=== PATIENT | male | born 2000 | race Caucasian/White ===

== ENCOUNTER 2021-05-09 16:40 | Emergency (ER) ==
[~2021-05-09] VITALS: Ht 180.3 cm; Wt 81.8 kg
== END 2021-05-09 21:10 | disposition left against medical advice (07) ==
LOC: M ED 16:40
DX: Z53.21 Procedure and treatment not carried out due to patient leaving prior to being seen by health care provider (principal)

== ENCOUNTER 2021-12-26 20:03 | Emergency (ER) ==
[~2021-12-26] VITALS: Ht 175.3 cm; Wt 89.4 kg
== END 2021-12-26 21:02 | disposition left against medical advice (07) ==
LOC: M ED 20:03
DX: Z53.21 Procedure and treatment not carried out due to patient leaving prior to being seen by health care provider (principal)

== ENCOUNTER → 2023-08-30 | Outpatient (CLI) | payer MEDICAID, OTHER | LOC: M RAD 08:39 | PROVIDERS: ATTEND Physician Assistant | DX: J34.2 Deviated nasal septum (principal) ==

== ENCOUNTER 2023-09-10 09:14 | Emergency (ER) | payer OTHER ==
[~2023-09-10] VITALS: Ht 182.9 cm; Wt 86.8 kg
[2023-09-10] MEDS ORDERED: HYDR50TA70 (09:54)
[2023-09-10 13:21] LABS: HEPATITIS B SURFACE ANTIBODY POSITIVE (POSITIVE)
[2023-09-10 13:33] LABS: HEPATITIS B SURFACE ANTIGEN NEGATIVE (NEGATIVE)
[2023-09-10 13:45] LABS: HIV 1&2 SCREEN NEGATIVE (NEGATIVE)
[2023-09-10 13:48] LABS: Trichomonas vaginalis (AMP) NOT DETECTED (NEGATIVE)
[2023-09-10 13:54] LABS: HEPATITIS C VIRUS ABY INDEX < 0.02 INDEX (<0.8)
[2023-09-10 14:11] LABS: GC DNA AMPLIFICATION NEGATIVE (NEGATIVE)
[2023-09-10] MEDS ORDERED: METR-265 PO (14:31)
[2023-09-10 14:44] VITALS: BP 120/76; TEMP 97.6; O2SAT 98
[2023-09-10] MEDS: metroNIDAZOLE (FLAGYL) 500MG TABLET PO ONE (14:48)
[2023-09-10] MEDS ORDERED: DOXY-440 PO (14:54)
== END 2023-09-10 14:53 | disposition home or self-care (01) ==
LOC: M ED 09:14
DX: A74.9 Chlamydial infection, unspecified (principal); F17.200 Nicotine dependence, unspecified, uncomplicated; Z86.79 Personal history of other diseases of the circulatory system; J45.909 Unspecified asthma, uncomplicated; F41.9 Anxiety disorder, unspecified; F32.A Depression, unspecified

== ENCOUNTER → 2023-09-19 | Outpatient (CLI) | payer OTHER ==
[~2023-09-19] MED LIST: DOXY-440 PO; HYDR50TA70; METR-265 PO
== END ==
LOC: M EKG 14:04
PROVIDERS: ATTEND Nurse Practitioner Psychiatric/Mental Health
DX: F43.20 Adjustment disorder, unspecified (principal)

== ENCOUNTER → 2023-09-24 | Outpatient (REF) | payer OTHER ==
[2023-09-24 14:11] LABS: Trichomonas vaginalis (AMP) NOT DETECTED (NEGATIVE)
[2023-09-24 14:35] LABS: GC DNA AMPLIFICATION NEGATIVE (NEGATIVE)
[2023-09-24 18:25] LABS: ALBUMIN 4.3 G/DL (3.2-5.2); ALKALINE PHOSPHATASE 58 U/L (46-116); ALT/SGPT 29 U/L (7.0-40); AST/SGOT 19 U/L (<34); BILIRUBIN,TOTAL 2.8 MG/DL (0.3-1.2); BLOOD UREA NITROGEN 11 MG/DL (9-23); CALCIUM LEVEL 9.5 MG/DL (8.5-10.1); CARBON DIOXIDE LEVEL 27 MMOL/L (20-31); CHLORIDE LEVEL 104 MMOL/L (98-107); CHOLESTEROL LEVEL 128 MG/DL (<200); CHOLESTEROL RISK RATIO 3.55 (<5); CREATININE FOR GFR 0.87 MG/DL (0.70-1.30); GLOMERULAR FILTRATION RATE > 60.0 (>60); GLUCOSE, FASTING 75 MG/DL (60-100); LDL CHOLESTEROL 75.2 MG/DL (<100); POTASSIUM SERUM 4.3 MMOL/L (3.5-5.1); SODIUM LEVEL 136 MMOL/L (136-145); TOTAL PROTEIN 6.6 G/DL (5.7-8.2); TRIGLYCERIDES LEVEL 84 MG/DL (<150)
[2023-09-24 18:28] LABS: TOTAL 25(OH) VITAMIN D 30.3 NG/ML (20.0-100.0)
[2023-09-26 09:08] LABS: TESTOSTERONE FREE (DIRECT) 10.5 pg/mL (9.3-26.5)
== END ==
LOC: M LAB REF 11:44
PROVIDERS: ATTEND Physician Assistant
DX: Z11.9 Encounter for screening for infectious and parasitic diseases, unspecified (principal)

== ENCOUNTER 2024-01-06 02:05 | Emergency (ER) | payer MEDICAID, OTHER ==
[~2024-01-06] VITALS: Ht 182.9 cm; Wt 85.6 kg
[~2024-01-06 02:05] MED LIST changes: -HYDR50TA70; +HYDR50TA70 PO
[2024-01-06] MEDS: PANTOPRAZOLE 40MG VIAL IV ONE (08:26)
[2024-01-06] MEDS: SUCRALFATE 1 GM TAB PO ONE (08:26)
[2024-01-06 08:36] LABS: BASO % 0.5 % (0.0-1.0); EOS # 0.2 10^3/uL (0.0-0.5); EOS % 2.7 % (0.0-3.0); HEMATOCRIT 41.4 % (42.0-52.0); HEMOGLOBIN 14.9 g/dl (13.5-17.5); LYMPH # 1.2 10^3/uL (1.5-5.0); LYMPH % 16.5 % (24.0-44.0); MEAN CORPUSCULAR HEMOGLOBIN 30.8 pg (27.0-33.0); MEAN CORPUSCULAR VOLUME 85.7 fl (80.0-96.0); MONO # 1.1 10^3/uL (0.0-0.8); MONO % 15.4 % (2.0-8.0); NEUTROPHILS # 4.8 10^3/uL (1.5-8.5); NEUTROPHILS % 64.8 % (36.0-66.0); PLATELET COUNT, AUTOMATED 183 10^3/uL (150-450); RED BLOOD COUNT 4.83 10^6/uL (4.30-6.10); WHITE BLOOD COUNT 7.4 10^3/uL (4.0-10.0)
[2024-01-06 09:00] LABS: ALBUMIN 3.9 G/DL (3.2-5.2); BILIRUBIN,DIRECT 0.6 MG/DL (<0.4); BILIRUBIN,TOTAL 2.9 MG/DL (0.3-1.2); TOTAL PROTEIN 6.4 G/DL (5.7-8.2)
[2024-01-06] MEDS ORDERED: ISOVUE-370 76% 100ML VIAL As Ordered ONE (09:10)
[2024-01-06] MEDS ORDERED: SANI2SUP PR (11:11)
[2024-01-06 11:20] VITALS: BP 112/68; TEMP 98.6; O2SAT 99
== END 2024-01-06 11:47 | disposition home or self-care (01) ==
LOC: M ED 02:05
DX: R10.30 Lower abdominal pain, unspecified (principal); K59.00 Constipation, unspecified; J45.909 Unspecified asthma, uncomplicated; Z79.899 Other long term (current) drug therapy
CPT/HCPCS: 74177; 80047; 80076; 83690; 85025; 96374; 99284; J2470; Q9967

== ENCOUNTER 2024-01-25 17:03 | Emergency (ER) | payer OTHER ==
[~2024-01-25] VITALS: Ht 182.9 cm; Wt 90.4 kg
[~2024-01-25 17:03] MED LIST changes: +SANI2SUP PR
[2024-01-25 17:08] VITALS: BP 132/68; TEMP 97.7; O2SAT 97
[2024-01-25] MEDS ORDERED: HYDR1CRE30 TOP (17:53)
== END 2024-01-25 18:34 | disposition home or self-care (01) ==
LOC: M ED 17:03
DX: L30.9 Dermatitis, unspecified (principal); J45.909 Unspecified asthma, uncomplicated; Q25.1 Coarctation of aorta; Q21.10 Atrial septal defect, unspecified; F17.200 Nicotine dependence, unspecified, uncomplicated; Z79.899 Other long term (current) drug therapy